=== PATIENT | female | born 1990 | race Native Hawaiian/Other Pacific Islander ===

== ENCOUNTER → 2024-11-30 12:04 | Outpatient (CLI) | payer OTHER, SELFPAY ==
[2024-11-30 12:35] LABS: Add Manual Diff / Slide Review NO; Basophils Absolute Auto 0 /uL (0-100); Basophils Percent Auto 0.6 % (0-2); Eosinophils Absolute Auto 100 /uL (0-450); Eosinophils Percent Auto 1.1 % (2-4); Hematocrit 38.6 % (36-46); Hemoglobin 13.1 g/dL (12.0-16.0); Lymphocytes Absolute Auto 2200 /uL (1100-4500); Lymphocytes Percent Auto 26.1 % (25-40); Mean Corpuscular HGB Conc 33.9 % (30-36); Mean Corpuscular Hemoglobin 29.4 PG (26-34); Monocytes Absolute Auto 500 /uL (0-900); Monocytes Percent Auto 6.4 % (3-14); Neutrophils Absolute Auto 5600 /uL (1500-7000); Neutrophils Percent Auto 65.8 % (50-75); Platelet Count 473 X10^3/uL (150-400); Red Blood Cell Count 4.44 X10^6/uL (4.0-5.2); Red Cell Distribution Width 13.6 % (11.6-14.8); White Blood Cell Count 8.5 X10^3/uL (4.5-11.0)
[2024-11-30 12:53] LABS: Alanine Aminotransferase 43 IU/L (<35); Albumin 4.8 g/dL (3.5-5.0); Albumin Globulin Ratio 1.3 (1.0-2.8); Alkaline Phosphatase 55 U/L (38-126); Aspartate Aminotransferase 39 IU/L (14-36); BUN Creatinine Ratio 12.5 (6-22); Bilirubin Total 0.4 mg/dL (0.2-1.3); Blood Urea Nitrogen 10 mg/dL (7-17); Calcium 9.6 mg/dL (8.4-10.2); Carbon Dioxide 28 mmol/L (22-32); Chloride 103 mmol/L (98-107); Estimated Glomerular Filt Rate > 60 mL/min (>60); Globulin 3.7 g/dL (1.7-4.1); Glucose 95 mg/dL (70-100); HEMOLYSIS < 15 (0-50); Iron 88 ug/dL (37-170); Potassium 3.9 mmol/L (3.4-5.1); Sodium 139 mmol/L (137-145); Total Protein 8.5 g/dL (6.3-8.2)
[2024-11-30 13:05] LABS: Percent Iron Saturation 31 % (15-50); Total Iron Binding Capacity 288 ug/dL (265-497); Transferrin 283 mg/dL (206-381)
[2024-11-30 13:24] LABS: Thyroid Stimulating Hormone 1.39 uIU/mL (0.47-4.68)
[2024-11-30 13:28] LABS: Ferritin 100 ng/mL (6-137)
[2024-11-30 14:07] LABS: Urine Chlamydia NOT DETECTED; Urine N gonorrhoeae NOT DETECTED
[2024-12-01 04:08] LABS: RPR Screen Non Reactive (Non Reactive)
[2024-12-02 15:20] LABS: Hepatitis B Surface Antigen NEGATIVE s/c (NEGATIVE)
[2024-12-02 15:36] LABS: HIV 1 & 2 Ab/Ag 4th Gen Combo NEGATIVE (NEGATIVE); Hep C Virus Ab w/Reflex Quant NEGATIVE s/c (NEGATIVE)
[2024-12-07 07:36] LABS: Percent Free Testosterone 3.23 % (0.50-2.80); Testosterone Free 0.94 ng/dL (0.10-0.85); Testosterone Total 29.1 ng/dL (10.0-55.0)
== END ==
PROVIDERS: PCP Student in an Organized Health Care Education/Training Program; Referring Provider Student in an Organized Health Care Education/Training Program; Visit Provider Student in an Organized Health Care Education/Training Program
DX: Z20.2 Contact with and (suspected) exposure to infections with a predominantly sexual mode of transmission (principal); R53.83 Other fatigue; L68.9 Hypertrichosis, unspecified
CPT/HCPCS: 36415; 80053; 82728; 83540; 83550; 84402; 84403; 84443; 85025; 86592; 86695; 86696; 86803; 87340; 87389; 87491; 87591

== ENCOUNTER → 2025-05-16 08:36 | Outpatient (CLI) | payer OTHER, SELFPAY ==
[2025-05-16 09:33] LABS: Cholesterol 222 mg/dL (140-199); HDL Cholesterol 50 mg/dL (40-60); Triglycerides 158 mg/dL (35-150)
== END ==
PROVIDERS: PCP Student in an Organized Health Care Education/Training Program; Referring Provider Student in an Organized Health Care Education/Training Program; Visit Provider Student in an Organized Health Care Education/Training Program
DX: E66.812 Obesity, class 2 (principal)
CPT/HCPCS: 36415; 80061

== ENCOUNTER → 2025-11-02 08:06 | Outpatient (CLI) | payer OTHER, SELFPAY ==
[2025-11-02 09:58] LABS: Cortisol AM (Before 10AM) 13.7 ug/dL (4.46-22.7)
[2025-11-02 10:09] LABS: HIV 1 & 2 Ab/Ag 4th Gen Combo NEGATIVE (NEGATIVE)
[2025-11-02 14:18] LABS: Urine N gonorrhoeae NOT DETECTED
[2025-11-02 14:36] LABS: Urine Chlamydia NOT DETECTED
== END ==
PROVIDERS: PCP Student in an Organized Health Care Education/Training Program; Referring Provider Student in an Organized Health Care Education/Training Program; Visit Provider Student in an Organized Health Care Education/Training Program
DX: F41.9 Anxiety disorder, unspecified (principal); Z20.2 Contact with and (suspected) exposure to infections with a predominantly sexual mode of transmission
CPT/HCPCS: 36415; 82533; 86592; 87389; 87491; 87591